=== PATIENT | male | born 1955 | race Caucasian/White ===

== ENCOUNTER 2016-03-15 09:47 | Inpatient (IN) | payer OTHER ==
[2016-03-15] MEDS ORDERED: DILTIAZEM 5 MG/ML - 5 ML IV ONE (10:01)
[2016-03-15] MEDS ORDERED: Sodium Chloride 0.9% 1,000 ML PRIMARY IV ONE (10:04)
[2016-03-15 10:08] LABS: BASOPHILS # (AUTO) 0.03 10*3/UL; BASOPHILS % (AUTO) 0.3 % (0-1); EOSINOPHILS % (AUTO) 3.8 % (0-8); HEMATOCRIT 49.7 % (42.0-52.0); HEMOGLOBIN 17.1 g/dL (14.0-18.0); IMM GRAN % (AUTO) 0.6 % (0-5); IMM GRAN# (AUTO) 0.05 10*3/UL; LYMPHOCYTES # (AUTO) 2.39 10*3/uL; LYMPHOCYTES % (AUTO) 26.6 % (10-50); MEAN CORPUSCULAR HEMOGLOBIN 29.8 PG (27-31); MEAN CORPUSCULAR HGB CONC 34.4 g/dL (33-37); MEAN PLATELET VOLUME 10.1 FL (7.4-12.2); MONOCYTES # (AUTO) 0.58 10*3/UL (0.3-0.8); MONOCYTES % (AUTO) 6.5 % (5-15); NEUTROPHILS # (AUTO) 5.58 10*3/UL; NEUTROPHILS % (AUTO) 62.2 % (50-80); PLATELET MORPHOLOGY COMMENT NORMAL MORPHOLOGY (NORM); RDW COEFFICIENT OF VARIATION 12.9 % (11.5-14.5); RED BLOOD COUNT 5.74 10^6/uL (4.70-6.10); WHITE BLOOD COUNT 8.97 10^3/uL (4.8-10.8)
--- NOTE | 2016-03-15 10:13 | PDOC ---
Palpitations HPI - General Chief Complaint: Palpitations Stated Complaint: A-fib Date Seen by Provider: 03/15/16 Time Seen by Provider: 10:05 Source: POSITIVE: Patient, Spouse Exam Limitations: POSITIVE: No limitations Nurse's Notes Reviewed & Considered: Yes Nurse's Notes Reviewed & Considered: Yes - History of Present Illness Initial Comments: Terry is a 60-year-old male who presents to the emergency department with palpitations. Patient is largely asymptomatic though had spoken with his primary care provider and indicated that his home pulse ox was indicating that his heart rate has been elevated. Patient reports often it is in the 60s was up to 140s. Symptoms have been intermittent since February. Patient indicates he has a history of prior atrial fibrillation in the past that sounds like was treated with cardioversion after a echocardiogram. Patient does indicate that while he was hunting and had some exertional type area going up hills. Otherwise he denies any chest pain or shortness of breath. No nausea no vomiting. No recent fevers or chills. Patient denies any weight loss or weight gain. - Patient Home Medications Home Medications: Home Medications Mometasone Furoate [Nasonex] 2 spr INASL DAILY #3 bottle 04/26/14 Aspirin [Aspir-Low] 81 mg PO DAILY 03/15/16 Loratadine [Claritin] 10 mg PO DAILY 03/15/16 [place]-3 Fatty Acids [Fish Oil] 300 mg PO DAILY 03/15/16 - Patient Allergies Allergies/Adverse Reactions: Allergies Allergy/AdvReac Type Severity Reaction Status Date / Time No Known Allergies Allergy Verified 03/15/16 09:56 Past Medical History - heen HEENT History: Denies History Cardiovascular History: Arrhythmia Respiratory History: Denies History Gastrointestinal History: Denies History Genitourinary History: Denies History Endocrine History: Denies History Musculoskeletal History: Denies History Neurological History: Denies History Blood Disorders: Denies History Psychiatric History: Denies History History of Sexually Transmitted Diseases: No Male Reproductive History: Denies History Cancer History: Denies History In Past Year Been Physically Harmed or Verbally Threatened: No Tobacco Use: Former Smoker Alcohol Use: Occasionally Substance Use Type: None Previous Surgical History: Yes Type / Date of Surgery: Neck surgery Significant Family History: Heart disease Past Medical History Reviewed: Reviewed - Changes Made ROS - Limitations ROS Limitations: No Limitations Constitution: REPORTS: Denies Symptoms Cardiovascular: REPORTS: Heart Palpitations Respiratory: REPORTS: Other (Exertional dyspnea) Neurological: REPORTS: Denies Neuro Symptoms Gastrointestinal: REPORTS: Denies GI Symptoms Endocrine: REPORTS: Denies Symptoms Musculoskeletal: REPORTS: Denies MS Symptoms Genitourinary: REPORTS: Denies Symptoms Eyes: REPORTS: Denies Symptoms ENT: REPORTS: Denies Symptoms Skin: REPORTS: Denies Skin Symptoms Lympathic: REPORTS: Denies Lympathic Symptoms Immunologic: POSITIVE: Denies Symptoms Psychiatric: POSITIVE: Denies Psych Symptoms Palpitations Exam - General Appearance General Appearance: REPORTS: Alert, Cooperative, No Acute Distress, No Evidence of Trauma. DENIES: Anxious - HEENT HEENT: POSITIVE: Head Inspection Nml, Eyes Inspection Nml, Oral/Dental Inspect. Nml, PERRL - Neck Neck: POSITIVE: Normal Inspection - Respiratory Respiratory: REPORTS: No Respiratory Distress, Breath Sounds Normal, Chest Non- Tender. DENIES: Wheezes, Rales - Cardiovascular Cardiovascular: POSITIVE: Irreg Irregular Rhythm, Tachycardia. NEGATIVE: Murmur - Abdomen Abdomen: Soft: (All Quadrants), Normal Bowel Sounds: (All Quadrants), Denies Tenderness: (All Quadrants), No Splenomegaly: (All Quadrants), No Hepatomegaly: (All Quadrants), No Guarding: (All Quadrants), No Rebound: (All Quadrants) - Back Back: POSITIVE: Normal Inspection - Skin Skin: REPORTS: Intact, Normal For Race, Dry - Extremities Extremity: Non-Tender: (RLE), (LLE), Normal ROM: (RLE), (LLE), Normal Inspection : (RLE), (LLE) - Neurological / Psychological Neurological: POSITIVE: Affect Apporpriate, Oriented X3, research analyst Normal As Tested Palpitations Progress - Results Reviewed by me Lab Results Reviewed: Yes Lab Results:: Laboratory Results 03/15/16 Range/Units 10:05 WBC 8.97 (4.8-10.8) 10^3/uL RBC 5.74 (4.70-6.10) 10^6/uL Hgb 17.1 (14.0-18.0) g/dL Hct 49.7 (42.0-52.0) % MCV 86.6 (80-90) FL MCH 29.8 (27-31) PG MCHC 34.4 (33-37) g/dL RDW Std Deviation 40.8 (39-50) fL RDW Coeff of Jenae 12.9 (11.5-14.5) % Plt Count 243 (140-350) 10*3/uL MPV 10.1 (7.4-12.2) FL Immature Gran % (Auto) 0.6 (0-5) % Neut % (Auto) 62.2 (50-80) % Lymph % (Auto) 26.6 (10-50) % [place] % (Auto) 6.5 (5-15) % Eos % (Auto) 3.8 (0-8) % Baso % (Auto) 0.3 (0-1) % Immature Gran # (Auto) 0.05 10*3/UL Neut # (Auto) 5.58 10*3/UL Lymph # (Auto) 2.39 10*3/uL [place] # (Auto) 0.58 (0.3-0.8) 10*3/UL Eos # (Auto) 0.34 10*3/UL Baso # (Auto) 0.03 10*3/UL WBC Morphology Comment Normal morphology (NORM) Plt Morphology Comment Normal morphology (NORM) RBC Morph Comment Normal morphology (NORM) Sodium 141 (135-145) meq/L Potassium 4.3 (3.8-5.2) meq/L Chloride 104 (98-112) meq/L Carbon Dioxide 27 (23-33) meq/L Anion Gap 10 (5-20) BUN 16 (7-22) mg/dL Creatinine 1.0 (0.70-1.50) mg/dL Estimated GFR > 60 (>60 ml/min/1.73m(2)) BUN/Creatinine Ratio 16.00 (6-20) Glucose 84 (78-110) mg/dL Calculated Osmolality 291.0 (267-292) mOsm/kg Calcium 9.8 (8.7-10.7) mg/dL Magnesium 2.0 (1.6-2.4) mg/dL Troponin I < 0.012 (< 0.040) ng/mL TSH 1.59 (0.2700-4.2000) uIU/mL Free T4 1.44 (0.93-1.71) ng/dL EKG Interpreted/Reviewed By Me:: Yes (atrial fibrillation with rapid ventricular response. No acute ST changes.) - Patient's Progress Status: POSITIVE: Unchanged MDM / ED Course: Terry is a 60-year-old male who presents to the emergency department with atrial fibrillation with RVR. Vital signs are notable for tachycardia in the 150s and 60s. Patient has no hypotension. Examination demonstrates well- appearing male with irregularly irregular tachycardic heart rate. Patient's EKG did demonstrate atrial fibrillation with rapid ventricular response. Laboratory studies are reassuring there is no evidence of electrolyte abnormality contributing to patient's symptoms. I suspect that his exertional dyspnea secondary to arrhythmia, his troponins were negative. This makes ACS less likely. Patient's Chads 2 vasc score was 0, subsequent subsequently he was not anticoagulated in the emergency department and we'll defer anticoagulation to admitting provider. Patient was treated with 10 mg of diltiazem IV with no significant improvement in his heart rate. Subsequently started on a diltiazem drip and I spoke with Dr. Hsu who will admit the patient for further treatment. - Consult Consult (If Yes, Name of Consulting MD & Time Called): Yes (admitting hospitalist) Consulting MD will see pt:: POSITIVE: [facility] [place] Patient Care Time - Estimated PCT Patient Care Time (In Minutes): 35 Vital Signs - Recent Vital Signs Vital Signs: Vital Signs (Last 8 hours) Temp Pulse Pulse Resp BP Pulse Ox 03/15/16 09:49 97.4 F 157 H 157 H 16 151/93 98 - VS Reviewed Vital Signs Reviewed: Yes Critical Care Note - Critical Care Note Total Time (mins): 30 Critical Care: Circulatory Failure Risk History Source: Patient, Family Discussion with Family: Had discussion with family regarding treatment options and prognosis. Also discussed with family and patient need for admission to the hospital. Discussion with Information Resource Consultant: Discussed with Dr. Hsu admitting hospitalist Discharge Clinical Impression: Atrial arrhythmia, Atrial fibrillation with RVR Discharge Disposition: Admit to Inpatient Condition: Stable Care Transferred To: Dr. Hsu Date Decision to Admit to Inpatient: 03/15/16 Time Decision to Admit to Inpatient: 10:34
[2016-03-15 10:14] LABS: BLOOD UREA NITROGEN 16 mg/dL (7-22); CALCIUM 9.8 mg/dL (8.7-10.7); CHLORIDE 104 meq/L (98-112); EST GLOMERULAR FILTRATION > 60 (>60 ml/min/1.73m(2)); GLUCOSE 84 mg/dL (78-110); POTASSIUM 4.3 meq/L (3.8-5.2); SODIUM 141 meq/L (135-145)
[2016-03-15 10:40] LABS: FREE T4 (FREE THYROXINE) 1.44 ng/dL (0.93-1.71)
[2016-03-15] MEDS: Diltiazem Drip 125 MG in Sodium Chloride 0.9% 100 ML IV ONE ×4 (10:46→20:07)
--- NOTE | 2016-03-15 10:46 | EKG ---
[address] [address] Measurements Intervals [place] Rate: 160 P: FL: 0 QRS: 86 QRSD: 92 T: 45 QT: 284 QTc: 373 Interpretive Statements ATRIAL FIBRILLATION WITH RAPID VENTRICULAR RESPONSE MODERATE ST DEPRESSION, CONSIDER INFEROLATERAL ISCHEMIA Compared to ECG 08/31/2014 08:43:33 ST (T wave) deviation now present Sinus rhythm no longer present Electronically Signed On 03-15-16 12:23:15 [facility] by Tyree Shultz [id number]
--- NOTE | 2016-03-15 10:47 | PDOC ---
History and Physical - History of Present Illness History of Present Illness: This very nice 60-year-old gentleman who presented to the emergency room with palpitations around 1 40 bpm this is been intermittent since February he does have a past medical history of prior A. fib and in 2011 he was cardioverted after he had an echo cardiogram done he also states that during his hunting season he has some exertional dyspnea going up hills otherwise denies chest pain Past Medical History Medical History: afib Tobacco Use: Former Smoker Substance Use Type: None Alcohol Use: None Medication / Allergies Home Medications: Home Medications Medication Instructions Recorded Confirmed Type Mometasone Furoate [Nasonex] 2 spr INASL DAILY #3 bottle 04/26/14 03/15/16 Clinic Aspirin [Aspir-Low] 81 mg PO DAILY 03/15/16 03/15/16 History Loratadine [Claritin] 10 mg PO DAILY 03/15/16 03/15/16 History [place]-3 Fatty Acids [Fish Oil] 300 mg PO DAILY 03/15/16 03/15/16 History Allergies/Adverse Reactions: Allergies Allergy/AdvReac Type Severity Reaction Status Date / Time No Known Allergies Allergy Verified 03/15/16 09:56 Review of Systems - Review of Systems All Systems: Reviewed & No Additional Complaints Except as Stated - Respiratory Respiratory: REPORTS: Dyspnea with Exertion - Cardiovascular Cardiovascular: REPORTS: Palpitations. DENIES: Chest Pain, Edema, Syncope - Gastrointestinal Gastrointestinal / Abdominal: DENIES: Negative System Review, Nausea, Vomiting, Diarrhea, Constipation, Abdominal Pain, Bloody Stool, Poor Appetite, Heartburn, Regurgitation, Bloating, Lactose Intolerance, Melena, Bright Red Blood Per Rectum, Other, See HPI - Genitourinary Genitourinary: DENIES: Negative System Review, Pain, Burning, Hematuria, Incontinence, Urgency, Hesitant Stream, Decreased Stream, Nocutria, Discharge, Sexual Dyfunction, Other, See HPI - Neurological Neurologic: DENIES: Negative System Review, Headache, Numbness/Paresthesia, Tremors, Weakness, Seizures, Head Trauma, LOC, Dizziness, Confusion, Memory Loss , Difficulty Walking, Incoordination, Other, See HPI Exam - Vitals Vital Signs: Vital Signs Height 5 ft 9 in Weight 83.915 kg - General General Appearance: POSITIVE: No Acute Distress, Cooperative - Head Head Exam: POSITIVE: Normal Inspection, Normocephalic, Atraumatic - Eye Eye Exam: POSITIVE: Normal Appearance - Respiratory Respiratory Exam: POSITIVE: Clear to Auscultation - Bilaterally, Breathing Non Labored, Normal To Percussion - Cardiovascular Cardiovascular Exam: POSITIVE: No Clicks, No Gallops, Irregular Rhythm. NEGATIVE: Bradycardia, Systolic Murmur, JVD - GI/Abdominal GI/Abdominal Exam: POSITIVE: Non Tender, Non Distended, Soft. NEGATIVE: Guarding, No Masses, Rebound - Extremities Extremities Exam: POSITIVE: No Clubbing Present, No Edema Present - Neurological Neurological Exam: POSITIVE: Alert, Oriented x 3, CN II-XII Intact, No Facial Droop, Speech Intact / Clear, Moves All Extremities Equally - Psychiatric Psychiatric Exam: POSITIVE: Normal Affect - Integumentary Integumentary Exam: POSITIVE: Normal Color Results - Labs CBC and BMP: 03/15/16 10:05 03/15/16 10:05 Labs - Last 24 Hours: Laboratory Results 03/15/16 Range/Units 10:05 WBC 8.97 (4.8-10.8) 10^3/uL RBC 5.74 (4.70-6.10) 10^6/uL Hgb 17.1 (14.0-18.0) g/dL Hct 49.7 (42.0-52.0) % MCV 86.6 (80-90) FL MCH 29.8 (27-31) PG MCHC 34.4 (33-37) g/dL RDW Std Deviation 40.8 (39-50) fL RDW Coeff of Jenae 12.9 (11.5-14.5) % Plt Count 243 (140-350) 10*3/uL MPV 10.1 (7.4-12.2) FL Immature Gran % (Auto) 0.6 (0-5) % Neut % (Auto) 62.2 (50-80) % Lymph % (Auto) 26.6 (10-50) % [place] % (Auto) 6.5 (5-15) % Eos % (Auto) 3.8 (0-8) % Baso % (Auto) 0.3 (0-1) % Immature Gran # (Auto) 0.05 10*3/UL Neut # (Auto) 5.58 10*3/UL Lymph # (Auto) 2.39 10*3/uL [place] # (Auto) 0.58 (0.3-0.8) 10*3/UL Eos # (Auto) 0.34 10*3/UL Baso # (Auto) 0.03 10*3/UL WBC Morphology Comment Normal morphology (NORM) Plt Morphology Comment Normal morphology (NORM) RBC Morph Comment Normal morphology (NORM) Sodium 141 (135-145) meq/L Potassium 4.3 (3.8-5.2) meq/L Chloride 104 (98-112) meq/L Carbon Dioxide 27 (23-33) meq/L Anion Gap 10 (5-20) BUN 16 (7-22) mg/dL Creatinine 1.0 (0.70-1.50) mg/dL Estimated GFR > 60 (>60 ml/min/1.73m(2)) BUN/Creatinine Ratio 16.00 (6-20) Glucose 84 (78-110) mg/dL Calculated Osmolality 291.0 (267-292) mOsm/kg Calcium 9.8 (8.7-10.7) mg/dL Magnesium 2.0 (1.6-2.4) mg/dL Troponin I < 0.012 (< 0.040) ng/mL Assessment and Plan - Patient Problems (1) Atrial arrhythmia Current Visit: Yes Status: Acute (2) Atrial fibrillation with RVR Current Visit: Yes Status: Acute - Assessment / Plan Additional Assessment/Plan Details: A. fib RVRadmit to ICU IV fluids with 20 K continue diltiazem drip and will add digoxin and anticoagulation as well echo was ordered
[2016-03-15] MEDS ORDERED: Sodium Chloride 0.9% 1,000 ML ONE (18:23)
[2016-03-15] MEDS: Apixaban 5 MG TABLET PO SCH (20:07)
[2016-03-16 06:04] LABS: BASOPHILS # (AUTO) 0.02 10*3/UL; BASOPHILS % (AUTO) 0.3 % (0-1); EOSINOPHILS % (AUTO) 6.2 % (0-8); HEMATOCRIT 46.5 % (42.0-52.0); HEMOGLOBIN 15.3 g/dL (14.0-18.0); IMM GRAN % (AUTO) 0.4 % (0-5); IMM GRAN# (AUTO) 0.03 10*3/UL; LYMPHOCYTES # (AUTO) 1.85 10*3/uL; LYMPHOCYTES % (AUTO) 24.9 % (10-50); MEAN CORPUSCULAR HEMOGLOBIN 28.5 PG (27-31); MEAN CORPUSCULAR HGB CONC 32.9 g/dL (33-37); MEAN PLATELET VOLUME 10.8 FL (7.4-12.2); MONOCYTES # (AUTO) 0.47 10*3/UL (0.3-0.8); MONOCYTES % (AUTO) 6.3 % (5-15); NEUTROPHILS % (AUTO) 61.9 % (50-80); RED BLOOD COUNT 5.36 10^6/uL (4.70-6.10); WHITE BLOOD COUNT 7.43 10^3/uL (4.8-10.8)
[2016-03-16 06:07] LABS: PLATELET MORPHOLOGY COMMENT NORMAL MORPHOLOGY (NORM)
[2016-03-16 06:10] LABS: PROTHROMBIN TIME 10.8 secs (9.7-11.4)
[2016-03-16 06:14] LABS: ASPARTATE AMINO TRANSFERASE 21 IU/L (21-57); BILIRUBIN,TOTAL 0.6 mg/dL (0.3-1.2); BLOOD UREA NITROGEN 17 mg/dL (7-22); BUN/CREATININE RATIO 21.25 (6-20); CHLORIDE 109 meq/L (98-112); CREATININE 0.8 mg/dL (0.70-1.50); EST GLOMERULAR FILTRATION > 60 (>60 ml/min/1.73m(2)); GLUCOSE 132 mg/dL (78-110); MAGNESIUM 1.9 mg/dL (1.6-2.4); POTASSIUM 4.1 meq/L (3.8-5.2); SODIUM 142 meq/L (135-145); TOTAL PROTEIN 6.3 g/dL (6.1-8.0)
[2016-03-16] MEDS ORDERED: DILTIAZEM CD 180 MG CAP PO ONE ×2 (08:15→08:30)
[2016-03-16] MEDS ORDERED: MOMETASONE FUROATE INASL SCH (09:00)
[2016-03-16] MEDS: ASPIRIN EC 81 MG TABLET PO SCH (09:18)
[2016-03-16] MEDS: LORATADINE 10 MG TABLET PO SCH (09:18)
[2016-03-16] MEDS: Apixaban 5 MG TABLET PO SCH ×2 (09:18→21:15)
[2016-03-16] MEDS: LORazepam 2 MG/1 ML VIAL IVP PRN ×2 (09:45→21:15)
[2016-03-16] MEDS: NORMAL SALINE 10 ML SYRINGE FLUSH IVP PRN (09:45)
[2016-03-16] MEDS ORDERED: Magnesium Sulfate 2gm (Premix) 2 GM in Premix 1 BAG IV ONE (10:24)
--- NOTE | 2016-03-16 10:24 | PDOC(PROG) ---
Interval History: Patient is doing well no chest pain nausea or vomiting he has not had much sleep he still in A. fib better rate control plus on the between 90 and 100. Objective : Data - Labs CBC and BMP: 03/16/16 05:25 03/16/16 05:25 Labs - Last 24 Hours: Laboratory Results 03/16/16 Range/Units 05:25 WBC 7.43 (4.8-10.8) 10^3/uL RBC 5.36 (4.70-6.10) 10^6/uL Hgb 15.3 (14.0-18.0) g/dL Hct 46.5 (42.0-52.0) % MCV 86.8 (80-90) FL MCH 28.5 (27-31) PG MCHC 32.9 L (33-37) g/dL RDW Std Deviation 40.9 (39-50) fL RDW Coeff of Jenae 13.0 (11.5-14.5) % Plt Count 193 (140-350) 10*3/uL MPV 10.8 (7.4-12.2) FL Immature Gran % (Auto) 0.4 (0-5) % Neut % (Auto) 61.9 (50-80) % Lymph % (Auto) 24.9 (10-50) % [place] % (Auto) 6.3 (5-15) % Eos % (Auto) 6.2 (0-8) % Baso % (Auto) 0.3 (0-1) % Immature Gran # (Auto) 0.03 10*3/UL Neut # (Auto) 4.60 10*3/UL Lymph # (Auto) 1.85 10*3/uL [place] # (Auto) 0.47 (0.3-0.8) 10*3/UL Eos # (Auto) 0.46 10*3/UL Baso # (Auto) 0.02 10*3/UL WBC Morphology Comment Normal morphology (NORM) Plt Morphology Comment Normal morphology (NORM) RBC Morph Comment Normal morphology (NORM) PT 10.8 (9.7-11.4) secs INR 1.05 (0.00-5.90) N/A Sodium 142 (135-145) meq/L Potassium 4.1 (3.8-5.2) meq/L Chloride 109 (98-112) meq/L Carbon Dioxide 22 L (23-33) meq/L Anion Gap 11 (5-20) BUN 17 (7-22) mg/dL Creatinine 0.8 (0.70-1.50) mg/dL Estimated GFR > 60 (>60 ml/min/1.73m(2)) BUN/Creatinine Ratio 21.25 H (6-20) Glucose 132 H (78-110) mg/dL Calculated Osmolality 297.0 H (267-292) mOsm/kg Calcium 9.0 (8.7-10.7) mg/dL Magnesium 1.9 (1.6-2.4) mg/dL Total Bilirubin 0.6 (0.3-1.2) mg/dL AST 21 (21-57) IU/L ALT 51 (21-72) IU/L Alkaline Phosphatase 67 (38-126) IU/L Total Protein 6.3 (6.1-8.0) g/dL Albumin 3.7 (3.5-4.8) g/dL Globulin 2.6 (2.50-4.10) g/dL Albumin/Globulin Ratio 1.40 (1.3-2.0) mg/g TSH 1.60 (0.2700-4.2000) uIU/mL Objective : Exam - General General Appearance: Cooperative - Head Head Exam: Normal Inspection - Respiratory Respiratory Exam: Clear to Auscultation - Bilaterally, Breathing Non Labored, Normal To Percussion - Cardiovascular Cardiovascular Exam: Irregular Rhythm - GI/Abdominal GI/Abdominal Exam: Non Tender, Non Distended, Soft - Extremities Extremities Exam: No Clubbing Present, No Edema Present, No Cyanosis Present Assessment and Plan - Patient Problems (1) Atrial arrhythmia Current Visit: Yes Status: Acute (2) Atrial fibrillation with RVR Current Visit: Yes Status: Acute - Assessment / Plan Additional Assessment/Plan Details: #1 A. fib RVR we will give him 360 of Cardizem stopped the drip hopefully rate control will be improved I cannot add any beta alba because of his blood pressure troponins are negative continue anticoagulation I've discussed the case with Dr. Hernandez which agrees with the plan we will keep him another night to have his rate between 60 and 80 at rest and below 1:15 on ambulation. He has an appointment with the color shop helper on Saturday at 1:30 electrolytes are also replaced
[2016-03-16] MEDS ORDERED: DIGOXIN 125 MCG TABLET PO SCH (10:43)
[2016-03-16] MEDS ORDERED: Sodium Chloride 0.9% 500 ML PRIMARY IV PRN (13:52)
[2016-03-16] MEDS ORDERED: Diltiazem Drip 125 MG in Sodium Chloride 0.9% 100 ML IV ONE (14:00)
[2016-03-16] MEDS ORDERED: DILTIAZEM 5 MG/ML - 5 ML IV ONE (14:00)
[2016-03-17 06:05] LABS: ASPARTATE AMINO TRANSFERASE 21 IU/L (21-57); BILIRUBIN,TOTAL 0.9 mg/dL (0.3-1.2); BLOOD UREA NITROGEN 22 mg/dL (7-22); BUN/CREATININE RATIO 24.44 (6-20); CALCIUM 9.3 mg/dL (8.7-10.7); CHLORIDE 108 meq/L (98-112); CREATININE 0.9 mg/dL (0.70-1.50); EST GLOMERULAR FILTRATION > 60 (>60 ml/min/1.73m(2)); GLUCOSE 90 mg/dL (78-110); MAGNESIUM 2.1 mg/dL (1.6-2.4); POTASSIUM 4.6 meq/L (3.8-5.2); SODIUM 139 meq/L (135-145); TOTAL PROTEIN 6.3 g/dL (6.1-8.0)
[2016-03-17] MEDS ORDERED: Sodium Chloride 0.9% 1,000 ML PRIMARY IV ONE ×2 (09:02→19:45)
[2016-03-17] MEDS: ASPIRIN EC 81 MG TABLET PO SCH (09:20)
[2016-03-17] MEDS: Apixaban 5 MG TABLET PO SCH ×2 (09:20→20:34)
[2016-03-17] MEDS: LORATADINE 10 MG TABLET PO SCH (09:20)
[2016-03-17] MEDS: METOPROLOL SUCCINATE 50 MG SR 24H TABLET PO SCH ×2 (11:43→15:17)
--- NOTE | 2016-03-17 11:47 | PDOC(PROG) ---
Interval History: Patient had an uneventful night had to go back on the Cardizem drip for rate control Objective : Data - Labs CBC and BMP: 03/16/16 05:25 03/17/16 05:05 Labs - Last 24 Hours: Laboratory Results 03/17/16 Range/Units 05:05 Sodium 139 (135-145) meq/L Potassium 4.6 (3.8-5.2) meq/L Chloride 108 (98-112) meq/L Carbon Dioxide 20 L (23-33) meq/L Anion Gap 11 (5-20) BUN 22 (7-22) mg/dL Creatinine 0.9 (0.70-1.50) mg/dL Estimated GFR > 60 (>60 ml/min/1.73m(2)) BUN/Creatinine Ratio 24.44 H (6-20) Glucose 90 (78-110) mg/dL Calculated Osmolality 290.0 (267-292) mOsm/kg Calcium 9.3 (8.7-10.7) mg/dL Magnesium 2.1 (1.6-2.4) mg/dL Total Bilirubin 0.9 (0.3-1.2) mg/dL AST 21 (21-57) IU/L ALT 49 (21-72) IU/L Alkaline Phosphatase 67 (38-126) IU/L Total Protein 6.3 (6.1-8.0) g/dL Albumin 3.7 (3.5-4.8) g/dL Globulin 2.6 (2.50-4.10) g/dL Albumin/Globulin Ratio 1.40 (1.3-2.0) mg/g Objective : Exam - Head Head Exam: Normal Inspection - Respiratory Respiratory Exam: Clear to Auscultation - Bilaterally, Breathing Non Labored, Normal To Percussion - Cardiovascular Cardiovascular Exam: Irregular Rhythm - GI/Abdominal GI/Abdominal Exam: Normal Bowel Sounds, Non Tender, Soft - Rectal Rectal Exam: Normal Inspection - Extremities Extremities Exam: No Clubbing Present, No Edema Present Assessment and Plan - Patient Problems (1) Atrial arrhythmia Current Visit: Yes Status: Acute (2) Atrial fibrillation with RVR Current Visit: Yes Status: Acute - Assessment / Plan Additional Assessment/Plan Details: #1 A. fib RVR patient is on Cardizem drip was attempted yesterday with Cardizem to 60 and has wheezed started to titrate the drip down patient needed to be restarted on the drip this morning we are going to attempt to put the patient on a beta alba instead of through this will work better for this patient. He does have an appointment with Dr. Hernandez on Saturday at 1:30 for follow-up and further evaluation. All electrolytes are replaced and within normal limits troponins remain negative echo was done and read over the phone by Dr. Salazar showed no significant abnormality fire report not available yet
[2016-03-17] MEDS ORDERED: METOPROLOL SUCCINATE 50 MG SR 24H TABLET PO SCH (15:00)
[2016-03-17] MEDS: Metoprolol TARTRATE Tab 50 MG TAB PO SCH ×2 (15:39→23:46)
[2016-03-17] MEDS: Diltiazem Drip 125 MG in Sodium Chloride 0.9% 100 ML IV SCH ×3 (17:20→20:35)
[2016-03-17] MEDS: NORMAL SALINE 10 ML SYRINGE FLUSH IVP PRN (22:50)
[2016-03-17] MEDS: LORazepam 2 MG/1 ML VIAL IVP PRN (22:50)
[2016-03-18] MEDS: LORazepam 2 MG/1 ML VIAL IVP PRN (02:40)
[2016-03-18 02:58] VITALS: TEMP 97.6
[2016-03-18] MEDS: Metoprolol TARTRATE Tab 50 MG TAB PO SCH ×3 (07:42→08:45)
--- NOTE | 2016-03-18 07:56 | PDOC(PROG) ---
Date and Time of Service: 03/18/2016 7:54 AM Interval History: Subjective Patient's came into the hospital he said with history of shortness of breath, not feeling right this been going on for a week or so also not sleeping well but he denied palpitations. When he came in he was found to be in A. fib and hence the admission. Currently he said he slept well he is denying symptoms no chest pain or shortness of breath. No dizziness or lightheadedness. No history of hypertension or [place]. Objective : Data - Labs CBC and BMP: 03/16/16 05:25 03/17/16 05:05 Labs - Last 24 Hours: Laboratory Results 03/16/16 Range/Units 05:25 Thyroxine (T4) 7.2 (4.5 - 11.7) mcg/dL Objective : Exam - General General Appearance: No Acute Distress, Cooperative - Head Head Exam: Normal Inspection, Atraumatic - Eye Eye Exam: Normal Appearance - ENT ENT Exam: Normal Exam - Neck Neck Exam: Normal Inspection - Respiratory Respiratory Exam: Clear to Auscultation - Bilaterally - Cardiovascular Cardiovascular Exam: Irregular Rhythm - GI/Abdominal GI/Abdominal Exam: Normal Bowel Sounds, Non Tender, Non Distended, Soft - Rectal Rectal Exam: Deferred - External Exam: Deferred - Extremities Extremities Exam: Normal Inspection - Back Back Exam: Normal Inspection - Neurological Neurological Exam: Alert, Oriented x 3, CN II-XII Intact, Moves All Extremities Equally - Psychiatric Psychiatric Exam: Normal Affect - Integumentary Integumentary Exam: Normal Color Assessment and Plan - Patient Problems (1) Atrial fibrillation with RVR Current Visit: Yes Status: Acute Comment: He is off the Cardizem drip since last night he is on metoprolol every 8 hours, I think we'll switch him to twice a day. Continue Eliquis, he has appointment with the experimental flight test mechanic tomorrow. I told him we'll check on him at noontime and see what's his heart rate and if things are controlled and he is still doing okay maybe send him home and follow-up with the cardiology tomorrow.
[2016-03-18] MEDS: ASPIRIN EC 81 MG TABLET PO SCH (08:37)
[2016-03-18] MEDS: LORATADINE 10 MG TABLET PO SCH (08:37)
[2016-03-18] MEDS: Apixaban 5 MG TABLET PO SCH (08:38)
[2016-03-18] MEDS ORDERED: DILTIAZEM 30 MG TABLET PO ONE (11:58)
[2016-03-18 13:00] VITALS: RESP 25
--- NOTE | 2016-03-18 13:52 | DCSUMMARY ---
Hospitalization Summary Admit Date: 03/15/16 Discharge Date: 03/18/16 Hospital Course: Discharge diagnoses 1. A. fib with RVR Hospital course This is a 60 years old male with medical history significant for history of previous A. fib had a cardioversion in 2011, who came into the hospital because of not feeling well, shortness of breath for about a week there was no chest pain in the ER he was found to be in A. fib RVR and he was admitted to the hospital. Was admitted by Dr. Hsu please see his note patient was started on Cardizem drip. He was started also on eliquis. An attempt to switch him from IV Cardizem to by mouth failed and he had to be put back on the Cardizem drip. Then he was started on metoprolol in addition to the Cardizem drip and started tapering off the Cardizem. Today his heart rate was in the low 100 we put him on metoprolol 75 twice a day. I thought will check on him later on today and see whether we can send him home. However his heart rate started to go up again at 120-130 range. We gave him a small dose of Cardizem by mouth. I spoke with the anatomy professor Dr. Hernandez and he suggested transfer, I spoke with the patient he agreed on transfer the patient will be transferred to [place] and be seen by the anatomy professor and then determine what is in the next best step in controlling his heart rate. Laboratory Results 03/15/16 03/16/16 03/17/16 Range/Units 10:05 05:25 05:05 WBC 8.97 7.43 (4.8-10.8) 10^3/uL RBC 5.74 5.36 (4.70-6.10) 10^6/uL Hgb 17.1 15.3 (14.0-18.0) g/dL Hct 49.7 46.5 (42.0-52.0) % MCV 86.6 86.8 (80-90) FL MCH 29.8 28.5 (27-31) PG MCHC 34.4 32.9 L (33-37) g/dL RDW Std Deviation 40.8 40.9 (39-50) fL RDW Coeff of Jenae 12.9 13.0 (11.5-14.5) % Plt Count 243 193 (140-350) 10*3/uL MPV 10.1 10.8 (7.4-12.2) FL Immature Gran % (Auto) 0.6 0.4 (0-5) % Neut % (Auto) 62.2 61.9 (50-80) % Lymph % (Auto) 26.6 24.9 (10-50) % [place] % (Auto) 6.5 6.3 (5-15) % Eos % (Auto) 3.8 6.2 (0-8) % Baso % (Auto) 0.3 0.3 (0-1) % Immature Gran # (Auto) 0.05 0.03 10*3/UL Neut # (Auto) 5.58 4.60 10*3/UL Lymph # (Auto) 2.39 1.85 10*3/uL [place] # (Auto) 0.58 0.47 (0.3-0.8) 10*3/UL Eos # (Auto) 0.34 0.46 10*3/UL Baso # (Auto) 0.03 0.02 10*3/UL WBC Morphology Comment Normal morphology Normal morphology (NORM) Plt Morphology Comment Normal morphology Normal morphology (NORM) RBC Morph Comment Normal morphology Normal morphology (NORM) PT 10.8 (9.7-11.4) secs INR 1.05 (0.00-5.90) N/A Sodium 141 142 139 (135-145) meq/L Potassium 4.3 4.1 4.6 (3.8-5.2) meq/L Chloride 104 109 108 (98-112) meq/L Carbon Dioxide 27 22 L 20 L (23-33) meq/L Anion Gap 10 11 11 (5-20) BUN 16 17 22 (7-22) mg/dL Creatinine 1.0 0.8 0.9 (0.70-1.50) mg/dL Estimated GFR > 60 > 60 > 60 (>60 ml/min/1.73m(2)) BUN/Creatinine Ratio 16.00 21.25 H 24.44 H (6-20) Glucose 84 132 H 90 (78-110) mg/dL Calculated Osmolality 291.0 297.0 H 290.0 (267-292) mOsm/kg Calcium 9.8 9.0 9.3 (8.7-10.7) mg/dL Magnesium 2.0 1.9 2.1 (1.6-2.4) mg/dL Total Bilirubin 0.6 0.9 (0.3-1.2) mg/dL AST 21 21 (21-57) IU/L ALT 51 49 (21-72) IU/L Alkaline Phosphatase 67 67 (38-126) IU/L Troponin I < 0.012 < 0.012 (< 0.040) ng/mL Total Protein 6.3 6.3 (6.1-8.0) g/dL Albumin 3.7 3.7 (3.5-4.8) g/dL Globulin 2.6 2.6 (2.50-4.10) g/dL Albumin/Globulin Ratio 1.40 1.40 (1.3-2.0) mg/g TSH 1.59 1.60 (0.2700-4.2000) uIU/mL Free T4 1.44 (0.93-1.71) ng/dL Thyroxine (T4) 7.2 (4.5 - 11.7) mcg/dL Discharge instruction Diet regular Activity as started Medications Active Medications Apixaban (Eliquis) 5 mg PO BID [facility] Last Admin: 03/18/16 08:38 Dose: 5 mg Aspirin (Aspirin Ec) 81 mg PO DAILY [facility] Last Admin: 03/18/16 08:37 Dose: 81 mg Diltiazem HCl (Cardizem) 30 mg PO QID [facility] Sodium Chloride (Normal Saline 0.9%) 25 mls @ 200 mls/hr IV .Post Infusion PRN PRN Reason: No Primary IV for Flush ONLY Sodium Chloride (Normal Saline) 500 mls @ 30 mls/hr PRIMARY IV .[id number] PRN; TKO PRN Reason: for carrier fluid Last Admin: 03/16/16 13:58 Dose: 30 mls/hr Loratadine (Claritin) 10 mg PO DAILY [facility] Last Admin: 03/18/16 08:37 Dose: 10 mg Lorazepam (Ativan Inj) 0.5 - 1 mg IVP Q2H PRN PRN Reason: Anxiety Last Admin: 03/18/16 02:40 Dose: 1 mg Metoprolol Tartrate (Lopressor Tab) 75 mg PO BID [facility] Last Admin: 03/18/16 08:45 Dose: Not Given Sodium Chloride (Saline Flush) 5 - 20 ml IVP BID PRN PRN Reason: Flush Last Admin: 03/17/16 22:50 Dose: 10 ml Follow-up per Dr. Hernandez postdischarge. Exam - Vitals Vital Signs: Vital Signs Temperature 97.6 F Temperature Source Temporal Artery Scan Pulse Rate [Apical] 84 Pulse Rate [Pulse Oximeter 84 Right] Pulse Rate [Telemetry] 114 Pulse Rate 96 Respiratory Rate 25 Blood Pressure [Right Arm] 120/81 Blood Pressure [Left Arm] 126/69 Blood Pressure 114/85 Pulse Ox 93 Oxygen Delivery Method Room Air Height 5 ft 9 in Weight 183 lb 9.6 oz Patient Problems - Patient Problem List (1) Atrial fibrillation with RVR Status: Acute
[2016-03-18] MEDS ORDERED: DILTIAZEM 30 MG TABLET PO SCH (17:00)
== END 2016-03-18 14:25 | disposition short-term general hospital (02) | DRG 310 ==
LOC: ER 09:47 → MED/SURG 10:34 → ICU 10:34
PROVIDERS: ADMIT Internal Medicine; ATTEND Internal Medicine
DX: I48.91 Unspecified atrial fibrillation (principal); I49.8 Other specified cardiac arrhythmias
CPT/HCPCS: 36415; 80048; 80053; 83735; 84436; 84439; 84443; 84484; 85025; 85610; 93005; 93010; 93306; 96374; 99285; J2060; J3475; J7030; J7040; J7050